=== PATIENT | female | born 1985 | race Caucasian/White ===

== ENCOUNTER 2018-01-12 10:11 | Inpatient (IN) ==
[2018-01-12] MEDS ORDERED: CeFAZolin Syr 3,000MG/30 ML 3,000 MG/30 ML SYRINGE IVPB ONE (10:44)
[2018-01-12] MEDS ORDERED: Ringers Solution, Lactated 1,000 ML IVC ONE (10:44)
[2018-01-12] MEDS ORDERED: Ringers Solution, Lactated 1,000 ML IVC SCH (10:45)
[2018-01-12] MEDS ORDERED: Famotidine 20 MG/2 ML VIAL IVP PRN (10:47)
[2018-01-12] MEDS ORDERED: Ondansetron 4 MG/2 ML VIAL IVP PRN ×2 (10:47→13:44)
[2018-01-12] MEDS ORDERED: Naloxone 0.4 MG/ML INJ IVP PRN (10:47)
[2018-01-12] MEDS ORDERED: Metoclopramide 10 MG/2 ML VIAL IVP PRN ×2 (10:47→13:44)
[2018-01-12] MEDS ORDERED: *HR* Promethazine 25 MG/ML VIAL IVP PRN (10:51)
[2018-01-12] MEDS ORDERED: Acetaminophen IV 1,000 MG/100 ML INFUS..BTL IVPB ONE (10:51)
[2018-01-12] MEDS ORDERED: *HR* HYDROmorphone (PF) 1 MG/ML SYRINGE IVP PRN (10:51)
--- NOTE | 2018-01-12 10:55 | Anesthesia Evaluation PreOp ---
Date of Encounter: 01/12/18 Time of Encounter: 10:47 - Past History Planned Operation: repeat , Cardiac History: Denies any Significant Hx Pulmonary History: Denies Any Significant HX C++ PROFESSOR History: Denies Any Significant HX Other Medical History: Other (gestational DM on insulin (same with 2 previous preg), anemia) Anesthesia History: No Prior Anesthetic Complications, Past Anesthesia (2 previous no comp) Alcohol Use: none Drug use: none Medications and Allergies Ferrous Sulfate mg PO BID 01/12/18 [History] Insulin Human Regular 30 units SQ DAILY 01/12/18 [History] Vitamin Tablet 1 mg PO DAILY 01/12/18 [History] metFORMIN 1 mg PO BID 01/12/18 [History] 3 Allergy/AdvReac Type Severity Reaction Status Date / Time No Known Allergies Allergy Verified 01/12/18 10:39
[2018-01-12] MEDS ORDERED: Lidocaine -MPF 2% 5 ML VIAL ONE (11:04)
[2018-01-12] MEDS ORDERED: *HR* Oxytocin 10 UNIT/ML VIAL IM ONE (11:05)
[2018-01-12 11:08] LABS: Basophils % 0.4 %; Eosinophils # 0.1 K/mcL (0.0-0.6); Eosinophils % 1.1 %; Hematocrit 39.1 % (35.3-44.9); Hemoglobin 12.9 g/dL (11.5-15.4); Immature Granulocytes % 0.7 % (0-4); Lymphocytes # 2.3 K/mcL (0.6-4.6); Lymphocytes % 27.8 %; Mean Corpuscular Hemoglobin 27.3 pg (28.0-33.3); Mean Corpuscular Volume 82.7 fL (83.0-100.0); Mean Platelet Volume 11.1 fL (9.4-12.4); Monocytes # 0.8 K/mcL (0.0-1.3); Neutrophils # 5.1 K/mcL (1.6-8.9); Platelet Count 203 K/mcL (140-400); Red Blood Count 4.73 M/mcL (3.82-4.97); Red Cell Distribution Width 17.4 % (11.5-14.5)
[2018-01-12] MEDS ORDERED: *HR* FentaNYL (PF) 100 MCG/2 ML VIAL ONE (11:08)
[2018-01-12] MEDS ORDERED: Morphine Sulfate/PF 5mg/10mL Vial ONE (11:08)
[2018-01-12] MEDS ORDERED: EPHEDrine 50 MG/ML VIAL ONE (11:08)
[2018-01-12] MEDS ORDERED: Ringers Solution, Lactated 1,000 ML ONE (11:09)
[2018-01-12] MEDS ORDERED: *HR* Phenylephrine 10 MG/ML VIAL ONE (11:16)
[2018-01-12 11:30] LABS: Amphetamine Screen,Urine Negative ng/mL (Cutoff=1000); Barbiturate Screen,Urine Negative ng/mL (Cutoff=200); Benzodiazepines Screen,Urine Negative ng/mL (Cutoff=200); Cannabinoid Screen,Urine Negative ng/mL (Cutoff = 50); Cocaine Screen,Urine Negative ng/mL (Cutoff= 300); Opiate Screen,Urine Negative ng/mL (Cutoff=300); Phencyclidine Screen,Urine Negative ng/mL (Cutoff=25)
--- NOTE | 2018-01-12 11:55 | OB/GYN History & Physical ---
Date of Encounter: 01/12/18 Time of Encounter: 11:52 Assessment and Plan (1) 38 weeks gestation of Status: Acute Pt presents for repeat (2) Gestational diabetes Status: Acute Currently on Metformin and Insulin Will Monitor glucose post- FBS and 2 hrs post prandial; if remains elevated, will adjust medication Qualifiers: Gestational diabetes mellitus control: insulin-controlled Trimester: third trimester Qualified Code(s): O24.414 - Gestational diabetes mellitus in , insulin controlled (3) Hypothyroidism during Status: Acute Qualifiers: Trimester: third trimester Qualified Code(s): O99.283 - Endocrine, nutritional and metabolic diseases complicating , third trimester; E03.9 - Hypothyroidism, unspecified (4) Hx of section Status: Acute Hx 2 previous C-sections (5) Macrosomia Status: Acute (6) Polyhydramnios Status: Acute Qualifiers: Fetus number: single or unspecified fetus Trimester: third trimester Qualified Code(s): O40.3XX0 - Polyhydramnios, third trimester, not applicable or unspecified History of Present Illness Chief complaint: Repeat Cesarian Section HPI: Ms. Clinton is a 32 year old female at 38 weeks who presents for repeat caesarian section. Pt has PMHx of gestational diabetes currently managed with Metformin and Insulin, and hypothyroidism managed with synthroid, patient states euthyroid when not . Reports + Movement. Denies vaginal bleeding, loss of clear fluid. care with Dr. Rock. course complicated by gestational diabetes, macrosomia, polyhydramnios. LABS: A positive; GBS negative; Rubella non-immune; Varicella immune; all other labs reviewed and negative Past Med Surg Social Fam HX - Past Medical History Source: patient Medical history: thyroid disease Psychiatric history: no psych history - Past Surgical History Surgical History: Additional surgical history: sections x 2 - Social History Smoking Status: Never smoker Smokeless Tobacco Status: No Alcohol use: none Drug use: none - Family History Mother Age: 54 Living Status: Still Living Hx Family Cardiac Disorders: No Hx Family Respiratory Disorders: No Hx Family Cancer: No Hx Family GI Disorders: No Hx Family Genitourinary Disorders: No Hx Family Endocrine Disorder: No Hx Family Musculoskeletal Disorders: No Hx Family Neuromuscular Disorders: No Hx Family Neurologic Disorders: No Hx Family HEENT Disorders: No Hx Family Autoimmune Disorders: No Hx Family Reproductive Disorders: No Hx Family Psychosocial Disorders: No Hx Family Medical Disorders: No Obstetrical History - Pregnancies : 3 Para: 2 Term: 2 : 0 Ab's: 0 Livin Medications and Allergies Ferrous Sulfate mg PO BID 01/12/18 [History] Vitamin Tablet 1 mg PO DAILY 01/12/18 [History] Acetaminophen [Tylenol] 325 mg PO Q6HR PRN tablet 01/14/18 [Rx] Docusate [Colace] 100 mg PO BID #30 capsule 01/14/18 [Rx] Ferrous Sulfate 325 mg PO DAILY #30 tablet 01/14/18 [Rx] HYDROcodone/Acet 5/325 mg [Hunter 5-325 mg] 1 tab PO Q4H PRN 5 Days #30 tab 01/14 [Rx] Ibuprofen [Motrin] 600 mg PO Q6HR PRN #30 tablet 01/14/18 [Rx] Lanolin 1 appl TP QID PRN tube 01/14/18 [Rx] Vit/FA 1 each PO DAILY tablet 01/14/18 [Rx] 3 Allergy/AdvReac Type Severity Reaction Status Date / Time No Known Allergies Allergy Verified 01/12/18 10:39 Review of System OB All systems PM: reviewed and no additional remarkable complaints except as stated Exam - Vital Signs Vital signs: Vital Signs reviewed and stable - Constitutional Constitutional: well developed, well nourished, no acute distress - HEENT HEENT: EOMI, PERRL - Neck Neck exam: full ROM, lymphadenopathy - Lungs Respiratory exam: CTAB - Cardiovascular Cardiovascular exam: RRR, +S1, +S2 - Abdomen Abdomen: Present: bowel sounds normal, gravid, non tender - Extremities Extremities exam: full ROM, normal capillary refill, normal inspection, warm, radial pulses palpable and symmetrical Deep Tendon Reflex Grade: 2+ Normal Results Result Diagrams: 01/13/18 05:07 Abnormal lab results MCV 82.7 fL (83.0-100.0) L 01/12/18 10:30 MCH 27.3 pg (28.0-33.3) L 01/12/18 10:30 RDW 17.4 % (11.5-14.5) H 01/12/18 10:30 All other labs normal. - VTE Reasons for not Prescribing Prophylaxis: Treatment not Indicated - Low risk for VTE - Attending Attestation Patient was seen and examined. I have reviewed the resident's H&P and agree with its contents.
[2018-01-12] MEDS ORDERED: Oxytocin 20 units/ LR 1000 mL 20 UNIT/1,000 ML BAG IVC ONE (12:01)
[2018-01-12] MEDS ORDERED: CeFAZolin Premix DUPLEX 2,000 MG/50 ML BAG IVPB ONE (12:30)
[2018-01-12] MEDS ORDERED: Lanolin 28 GM TUBE TP PRN (13:44)
[2018-01-12] MEDS ORDERED: Sennosides 8.6 MG TABLET PO PRN (13:44)
[2018-01-12] MEDS ORDERED: Simethicone 80 MG TAB.CHEW PO PRN (13:44)
[2018-01-12] MEDS ORDERED: *HR* OxyCODONE/APAP 5/325 TABLET PO PRN (13:44)
[2018-01-12] MEDS ORDERED: Acetaminophen 325 MG TABLET PO PRN (13:44)
[2018-01-12] MEDS ORDERED: Oxytocin 20 units/ LR 1000 mL 20 UNIT/1,000 ML BAG IVC SCH (13:45)
--- NOTE | 2018-01-12 14:02 | OB/GYN Procedure Note ---
Section - Date of procedure: 01/12/18 Preop diagnosis: desires repeat Post-op diagnosis: same (Macrosomia; Polyhydramnios; Placentamegaly) Procedure: repeat low transverse Surgeon: Bernardo Medrano Blood Loss: 600 Was there an timber management assistant present: Yes Digital Strategy Manager: Patrick Moy Anesthesiologist: Jorge Zamora Anesthesia Type: Spinal section complications: none Disposition: PACU Specimens: Placenta - Infant (s) A Infant Delivery Date: 01/12/18 Delivery Time: 13:00 Presentation: vertex Position: [place] Route of delivery: vacuum extraction Gender: Male Viability: Viable Pounds: 10 Ounces: 7 at 1 minute: 8 at 5 minutes: 9 Placenta: complete extraction - Narrative Narrative: Patient was taken to the operating room. After satisfactory spinal anesthesia was achieved, patient placed in supine position Godinez catheter inserted and prepped and draped in usual manner. After appropriate timeout, abdomen was entered through standard Maylard incision. The Colt retractor was placed. Peritoneum overlying the lower uterine segment was incised in the U-shaped fashion. Uterine cavity was entered sharply extended laterally. Fluid was clear. With fundal pressure and vacuum assistance the head was delivered. Infant suctioned upon delivery of the head. The remainder of the was delivered. The umbilical cord double clamped cut and the infant was handed to nursery staff for further evaluation. Placenta was removed and sent to pathology for analysis. Uterus closed in single layer using a 0 Monocryl. After assurance hemostasis, the peritoneum was reapproximated over the lower uterine segment with a 2-0 Vicryl. The abdomen was closed standard fashion using a 0 PDS on the fascia and 3-0 Monocryl in the skin. Sterile dressing was applied. Patient did well was taken to recovery in satisfactory condition. Counts were correct.
[2018-01-12] MEDS ORDERED: Ringers Solution, Lactated 1,000 ML IV SCH (19:15)
--- NOTE | 2018-01-13 00:33 | Anesthesia Evaluation Post Op ---
Date of Encounter: 01/13/18 Time of Encounter: 21:39 - Vital Signs Vital Signs: vss - Airway Airway: Non-obstructed - Mental Status Mental Status: Alert & Oriented, Answers Appropriately - Pain Pain Scale used: Mamta (Faces) - Nausea Vomiting Nausea Vomiting: Not Present - Hydration Hydration: Tolerates oral liquids - Discharge PostOp Status: Transfer Patient to floor
[2018-01-13] MEDS ORDERED: *HR* HYDROmorphone (PF) 1 MG/ML SYRINGE IVP PRN (00:35)
[2018-01-13 05:46] LABS: Basophils % 0.3 %; Eosinophils % 0.4 %; Hematocrit 31.8 % (35.3-44.9); Immature Granulocytes % 0.6 % (0-4); Lymphocytes # 2.1 K/mcL (0.6-4.6); Lymphocytes % 21.3 %; Mean Corpuscular HGB Conc 32.1 g/dL (31.6-35.5); Mean Corpuscular Hemoglobin 26.6 pg (28.0-33.3); Mean Platelet Volume 10.6 fL (9.4-12.4); Monocytes % 9.8 %; Neutrophils # 6.7 K/mcL (1.6-8.9); Platelet Count 152 K/mcL (140-400); Red Blood Count 3.83 M/mcL (3.82-4.97); Red Cell Distribution Width 17.3 % (11.5-14.5); Segmented Neutrophils % 67.6 %
[2018-01-13 05:48] LABS: Hemoglobin 10.2 g/dL (11.5-15.4)
[2018-01-13] MEDS: Prenatal Vit/FA 1 EACH TABLET PO SCH (08:16)
--- NOTE | 2018-01-13 10:13 | OB/GYN Progress Note ---
Date of Encounter: 01/13/18 Time of Encounter: 10:11 - Assessment and Plan (1) 38 weeks gestation of Current Visit: Yes Status: Acute Patient to be continued on 48 hour S/P delivery hold. Regular checks to be conducted for pain management, , and discharge planning. Patient is in agreement with this plan and has no requests for intervention at this time. Subjective - Subjective Interval history: Review of systems: The patient admits to some nausea yesterday which has currently resolved, she also admits to diffuse abdominal tenderness which is currently well-controlled. The patient denies headache, vision change, chest pain, shortness of breath, or difficult with ambulation. Patient reports: appetite normal, voiding normally, pain well controlled, ambulating normally [place]: doing well, nursing well Objective - Vital Signs Latest vital signs: Vital Signs Temp Pulse Resp BP Pulse Ox 01/13/18 07:52 98.6 F 80 14 113/69 98 01/13/18 05:05 98.6 F 78 16 116/70 97 01/12/18 23:16 98.5 F 68 16 139/71 97 01/12/18 20:23 98.3 F 72 16 126/73 94 01/12/18 18:36 97.9 F 59 16 121/69 100 01/12/18 17:30 97.6 F 64 16 122/69 96 01/12/18 17:07 98.3 F 52 16 136/58 99 01/12/18 15:59 98.2 F 65 16 125/71 97 Intake and Output 01/12/18 01/13/18 01/13/18 23:59 07:59 15:59 Intake Total 240 / 240 Output Total 250 / 250 600 / 600 450 / 450 Balance -250 / -250 -600 / -600 -210 / -210 Intake: Oral 240 / 240 Output: Urine 450 / 450 Catheter 250 / 250 600 / 600 Other: Meal Breakfast Percent of Meal Consumed 100% Weight 92.1 kg - Exam Lungs: bilateral: normal Chest: Normal S1, Normal S2 Extremities: Present: edema (Non-pitting edema in bilateral lower extremities. ) . Absent: tenderness Abdomen: Present: normal appearance, soft, tenderness (Diffuse tenderness to palpation ). Absent: rigidity, distention, organomegaly Incision: Present: dry, intact, warm, other (There is no evidence of erythma, exudate, or swelling in the skin surrounding the incision site. ), dressed Uterus: Present: normal, firm - Labs Labs: Laboratory Results - last 24 hr 01/12/18 01/12/18 01/13/18 10:30 10:30 05:07 WBC 8.4 9.9 RBC 4.73 3.83 Hgb 12.9 10.2 L D Hct 39.1 31.8 L MCV 82.7 L 83.0 MCH 27.3 L 26.6 L MCHC 33.0 32.1 RDW 17.4 H 17.3 H Plt Count 203 152 MPV 11.1 10.6 Immature Gran % 0.7 0.6 Seg Neutrophils % 60.0 67.6 Lymphocytes % 27.8 21.3 Monocytes % 10.0 9.8 Eosinophils % 1.1 0.4 Basophils % 0.4 0.3 Neutrophils # 5.1 6.7 Lymphocytes # 2.3 2.1 Monocytes # 0.8 1.0 Eosinophils # 0.1 0.0 Basophils # 0.0 0.0 Urine Opiates Screen Negative Ur Barbiturates Screen Negative Ur Phencyclidine Scrn Negative Ur Amphetamines Screen Negative U Benzodiazepines Scrn Negative Urine Cocaine Screen Negative U Marijuana (THC) Screen Negative Ur Drug Screen Interp See Below
[2018-01-13] MEDS: Ibuprofen 600 MG TABLET PO PRN ×2 (11:47→21:42)
[2018-01-14 09:24] VITALS: BP 128/70
--- NOTE | 2018-01-14 10:27 | Discharge Summary ---
Date of Encounter: 01/14/18 Time of Encounter: 10:25 - Discharge Diagnosis (1) Status post repeat low transverse section Priority: Primary Status: Acute Comments: Feeling well Out of bed without dizziness Pain well controlled with by mouth pain meds Tolerating regular diet Vital signs stable Lochia light Voiding independently Passing flatus, no BM yet Ambulating independently Discharge home today (2) Breast feeding status of mother Priority: Secondary Status: Acute Comments: Community resources provided (3) anemia Priority: Secondary Status: Acute Comments: Continue iron daily - Discharge Medications Prescriptions: OxyCODONE/APAP 5/325 [Percocet 5/325 MG] 1 each PO Q4HR PRN 5 Days #30 tablet PRN Reason: Moderate pain 4-6 Ibuprofen [Motrin] 600 mg PO Q6HR PRN #30 tablet PRN Reason: Cramping Docusate [Colace] 100 mg PO BID #30 capsule Ferrous Sulfate 325 mg PO DAILY #30 tablet Home Medications: Ferrous Sulfate mg PO BID 01/12/18 [History] Vitamin Tablet 1 mg PO DAILY 01/12/18 [History] Acetaminophen [Tylenol] 325 mg PO Q6HR PRN tablet 01/14/18 [Rx] Docusate [Colace] 100 mg PO BID #30 capsule 01/14/18 [Rx] Ferrous Sulfate 325 mg PO DAILY #30 tablet 01/14/18 [Rx] Ibuprofen [Motrin] 600 mg PO Q6HR PRN #30 tablet 01/14/18 [Rx] Lanolin 1 appl TP QID PRN tube 01/14/18 [Rx] OxyCODONE/APAP 5/325 [Percocet 5/325 MG] 1 each PO Q4HR PRN 5 Days #30 tablet [Rx] Vit/FA 1 each PO DAILY tablet 01/14/18 [Rx] Allergies/Adverse Reactions: 3 Allergy/AdvReac Type Severity Reaction Status Date / Time No Known Allergies Allergy Verified 01/12/18 10:39 Data Procedures and tests throughout hospitalization: Laboratory Tests 01/12/18 01/12/18 01/13/18 10:30 10:30 05:07 WBC 8.4 9.9 RBC 4.73 3.83 Hgb 12.9 10.2 L D Hct 39.1 31.8 L MCV 82.7 L 83.0 MCH 27.3 L 26.6 L MCHC 33.0 32.1 RDW 17.4 H 17.3 H Plt Count 203 152 MPV 11.1 10.6 Immature Gran % 0.7 0.6 Seg Neutrophils % 60.0 67.6 Lymphocytes % 27.8 21.3 Monocytes % 10.0 9.8 Eosinophils % 1.1 0.4 Basophils % 0.4 0.3 Neutrophils # 5.1 6.7 Lymphocytes # 2.3 2.1 Monocytes # 0.8 1.0 Eosinophils # 0.1 0.0 Basophils # 0.0 0.0 POC Glucose Urine Opiates Screen Negative Ur Barbiturates Screen Negative Ur Phencyclidine Scrn Negative Ur Amphetamines Screen Negative U Benzodiazepines Scrn Negative Urine Cocaine Screen Negative U Marijuana (THC) Screen Negative Ur Drug Screen Interp See Below 01/13/18 01/13/18 01/13/18 10:23 15:07 20:25 WBC RBC Hgb Hct MCV MCH MCHC RDW Plt Count MPV Immature Gran % Seg Neutrophils % Lymphocytes % Monocytes % Eosinophils % Basophils % Neutrophils # Lymphocytes # Monocytes # Eosinophils # Basophils # POC Glucose 90 101 H 96 Urine Opiates Screen Ur Barbiturates Screen Ur Phencyclidine Scrn Ur Amphetamines Screen U Benzodiazepines Scrn Urine Cocaine Screen U Marijuana (THC) Screen Ur Drug Screen Interp Labs on day of discharge: Labs from last 24 hours 01/13/18 01/13/18 01/13/18 20:25 15:07 10:23 POC Glucose 96 101 H 90 Date of admission: 01/12/18 10:11 Primary care physician: PCP NONE Discharging clinician: Ro Case Anticipated date of discharge: 01/14/18 - Patient Status Disposition: Home, Self-Care Condition: Good Functional capacity at discharge: independent ambulation Overall status at discharge: patient is progressing back to baseline - Discharge Instructions Follow Up With: NONE,PCP [Primary Care Provider] - Bernardo Rock MD [Family Provider] - - Diet and Activity Activity: increase activity as tolerated Diet: regular diet Hospital Course Procedures: RLTCS Reason for admission: section, IUP at term Delivery: section Episiotomy: none Laceration: none complications: none Discharge diagnosis: IUP at term delivered baby: male Time Attestation: Total time spent providing and/or coordinating discharge services: Time Spent: Less than 30 minutes - VTE Reasons for not Prescribing Prophylaxis: Treatment not Indicated - Low risk for VTE Documentation of Mechanical Device: Intermittent pneumatic compression device Exam - Constitutional Vitals: Temp Pulse Resp BP Pulse Ox 98.3 F 69 16 128/70 97 01/14/18 09:23 01/14/18 09:23 01/14/18 10:10 01/14/18 09:23 01/14/18 09:23 General appearance IM: A&O X 3 - Respiratory Respiratory exam: Present: CTAB - Cardiovascular Cardiovascular exam IM: Present: RRR, +S1, +S2 - GI/Abdominal GI/Abdominal exam IM: normal bowel sounds, no peritoneal signs Incision: normal, dry, dressed - Rectal Rectal exam: deferred - Uterine Tone: Firm Uterus Position: At Umbilicus, Midline - Extremities Exam Extremities exam IM: Present: normal capillary refill, normal inspection, pedal edema, radial pulses palpable and symmetrical - Neurological Exam Neurological exam: alert, CN II-XII intact, normal gait, oriented X3, reflexes normal, no focal deficits, strengths equal and symetr throughout - Psychiatric Additional comments: Signs and symptoms of depression reviewed with patient and partner. They both verbalize understanding of when to seek help. - Other Additional findings: Breasts: Soft, nontender. Nipples intact without erythema.
[2018-01-14] MEDS: Ibuprofen 600 MG TABLET PO PRN (10:28)
[2018-01-14] MEDS: Prenatal Vit/FA 1 EACH TABLET PO SCH (10:28)
== END 2018-01-14 13:15 | disposition home or self-care (01) | DRG 540 ==
LOC: 1NENULAB 10:11 → 1NENUOBS 15:53
PROVIDERS: ADMIT Obstetrics & Gynecology; ATTEND Obstetrics & Gynecology